=== PATIENT | female | born 1940 | race Caucasian/White ===

== ENCOUNTER 2017-09-06 08:13 | Outpatient (CLI) | payer MEDICARE, OTHER ==
--- NOTE | 2017-09-06 13:41 | NM ---
NUCLEAR MEDICINE PARATHYROID EVALUATION: CLINICAL HISTORY: Hyperparathyroidism, unspecified. COMPARISON: No prior comparison imaging. FINDINGS: Scintigraphic imaging of the neck performed, including detailed imaging. On delayed imaging, there is retained radiotracer activity localization to the right parathyroid ever on. This does indicate parathyroid adenoma. IMPRESSION: Abnormal parathyroid evaluation with retained activity seen at the right parathyroid region. Finding does indicate thyroid adenoma. This may be further assessed with a dedicated CT parathyroid scan, a s clinically indicated. POS: ALLAN
== END 2017-09-06 08:14 | disposition home or self-care (01) ==
LOC: NM 08:13
PROVIDERS: ATTEND Otolaryngology Plastic Surgery within the Head & Neck
DX: E21.3 Hyperparathyroidism, unspecified (principal); R94.6 Abnormal results of thyroid function studies
CPT/HCPCS: 78072; A9500

== ENCOUNTER 2017-09-25 09:04 | Day surgery (SDC) | payer MEDICARE, OTHER ==
[2017-09-24 13:17] VITALS: BMI 33.6
[2017-09-25] MEDS ORDERED: Lidocaine 1% w/Epinephrine 1:200K 30 ML VIAL ONE (09:39)
[2017-09-25] MEDS ORDERED: Lidocaine 4% Topical Sol 50 ML BOT ONE (09:39)
[2017-09-25] MEDS ORDERED: Fentanyl 100 MCG/2 ML VIAL ONE (09:39)
[2017-09-25] MEDS ORDERED: Morphine 10 MG/ML VIAL ONE (09:39)
[2017-09-25 09:50] LABS: Hemoglobin 12.8 g/dL (12.0-16.0)
[2017-09-25 10:11] LABS: Anion Gap 12 mmol/L (10-20); BUN (Urea Nitrogen) 13 mg/dL (9.8-20.1); Calc. Creatinine Clearance 65 mL/min (70-130); Calcium 11.2 mg/dL (7.8-10.44); Carbon Dioxide 28 mmol/L (23-31); Chloride 98 mmol/L (98-107); Estimated GFR-MDRD 57; Glucose 102 mg/dL (83-110); Potassium 4.2 mmol/L (3.5-5.1); Sodium 134 mmol/L (136-145)
[2017-09-25] MEDS ORDERED: Famotidine/PF 20 mg/2ml Vial ONE (11:16)
[2017-09-25] MEDS ORDERED: Bacitracin Zinc Ointment 30 gm TUBE ONE (11:33)
[2017-09-25] MEDS ORDERED: Metoclopramide HCl 10 MG/2 ML VIAL ONE (12:24)
[2017-09-25] MEDS ORDERED: PHENYLEPHRINE-NS 100 MCG/ML 10 ML SYRINGE ONE (12:31)
[2017-09-25] MEDS ORDERED: PROPOFOL 200 MG/20 ML VIAL ONE (12:31)
[2017-09-25] MEDS ORDERED: Dexamethasone 20 MG/5 ML VIAL ONE (12:31)
[2017-09-25] MEDS ORDERED: Lidocaine 1% PF 5 ML VIAL ONE (12:31)
[2017-09-25] MEDS ORDERED: Succinylcholine Chloride 20 MG/ML 10 ml SYRINGE FS ONE (12:31)
[2017-09-25] MEDS ORDERED: ePHEDrine/0.9% NaCl/PF SYRINGE 50 mg/10 ml ONE (12:31)
[2017-09-25] MEDS ORDERED: HYDROcodone/Acetaminophen 5/325 mg Tablet ONE (14:36)
--- NOTE | 2017-09-25 16:21 | EKG ---
Test Reason : PREOP Blood Pressure : / mmHG Vent. Rate : 088 BPM Atrial Rate : 088 BPM P-R Int : 194 ms QRS Dur : 076 ms QT Int : 374 ms P-R-T Axes : 065 031 054 degrees QTc Int : 452 ms Normal sinus rhythm Normal ECG No previous ECGs available Confirmed by CARA CRUZ ([id number]) on 09/25/2017 4:21:00 PM Referred By: MAKAYLA Confirmed By:CARA CRUZ
--- NOTE | 2017-09-25 22:25 | OP ---
PREOPERATIVE DIAGNOSES: 1. Right hyperparathyroidism. 2. Hypercalcemia. POSTOPERATIVE DIAGNOSES: 1. Right hyperparathyroidism. 2. Hypercalcemia. PROCEDURE: Right parathyroidectomy. SURGEON: Kurt Mares M.D. TIE BUYER: CALIXTO Ramirez ANESTHESIA: GETA. ESTIMATED BLOOD LOSS: Less than 10 mL COMPLICATIONS: None. ANESTHESIA: GETA. PROCEDURE IN DETAIL: The patient was taken to the operating room and placed supine on the table. Ge neral endotracheal anesthesia was obtained by the Anesthesia staff. Tube was secured in the midline with the laryngeal electrodes and being confirmed to be between the two vocal cords bilaterally. Pema ulder roll was placed. Patient was prepped and draped in standard surgical fashion. Lidocaine 1% in 1:100,000 epinephrine was injected into the anticipated skin incision approximately 2 cm above the c lavicle in the right lateral portion of the neck. Following this, an incision was made through skin and subcutaneous tissue. The platysmal layers were transected and subplatysmal flaps were elevated s uperiorly and inferiorly. Following this, previous sutures were identified in the area of the strap muscles. Strap muscles were from the thyroid gland and were retracted laterally. Followin g this, the thyroid gland was displaced medially with a retractor and a large 3 cm parathyroid adenom a was encountered just lateral to the recurrent laryngeal nerve on the right side and just medial to the inferior thyroid artery. This was suture ligated removed from the body. Following this, the wou nd was irrigated, a small drain was placed and the platysmal strap muscles were reapproximated using Monocryl stitch. The platysmal layer was reapproximated. Subcutaneous stitches were placed. The sk in was then closed using Dermabond. The patient tolerated the procedure well.
== END 2017-09-25 15:35 | disposition home or self-care (01) ==
LOC: SDC 09:04
PROVIDERS: ATTEND Otolaryngology Plastic Surgery within the Head & Neck
PROC: 0GBR0ZZ Excision of Parathyroid Gland, Open Approach (ICD-10-PCS; principal; 2017-09-25)
DX: D35.1 Benign neoplasm of parathyroid gland (principal); E21.3 Hyperparathyroidism, unspecified; Z79.82 Long term (current) use of aspirin; Z79.899 Other long term (current) drug therapy
CPT/HCPCS: 36415; 80048; 85014; 85018; 88305; 93005; 93010; J1100; J2001; J2270; J2704; J2765; J3010; S0028

== ENCOUNTER 2017-10-31 12:13 | Outpatient (CLI) | payer MEDICARE, OTHER ==
[2017-10-31 14:08] LABS: #Basophils 0.1 thou/uL (0.0-0.2); #Eosinphils 0.4 thou/uL (0.0-0.7); #Lymphocytes 2.9 thou/uL (1.20-3.40); #Monocytes 0.8 thou/uL (0.11-0.59); %Basophils 0.8 % (0.0-1.0); %Eosinophils 5.3 % (0.0-10.0); %Lymphocytes 40.5 % (21.0-51.0); %Monocytes 11.3 % (0.0-10.0); %Neutrophils 42.1 % (42.0-75.0); Hemoglobin 12.7 g/dL (12.0-16.0); Mean Corpuscular HGB CONC 33.1 g/dL (32.0-36.0); Mean Corpuscular Hemoglobin 28.3 pg (27.0-31.0); Mean Corpuscular Volume 85.5 fl (81.0-99.0); Mean Platelet Volume 7.2 fL (7.4-10.4); Platelet Count 334 thou/uL (130-400); RBC Distribution Width 14.2 % (11.5-14.5); White Blood Cell (WBC) Count 7.2 thou/uL (4.8-10.8)
[2017-10-31 14:16] LABS: PTT 27.3 SEC (22.9-36.1); Prothrombin Time 12.9 SEC (12.0-14.7)
--- NOTE | 2017-10-31 14:28 | RAD ---
TWO VIEWS CHEST: HISTORY: Preoperative evaluation. FINDINGS: There is density in the right cardiophrenic angle. This could represent cardiophrenic fat pad, atele ctasis, or infiltrate. There are no comparison studies to assess stability. As there are no prior s tudies available, recommend elective chest CT to rule out a right cardiophrenic angle abnormality. The lungs are otherwise clear. Heart size is upper normal. IMPRESSION: Density in the right cardiophrenic angle. Recommend further evaluation. CODE T POS: ALLAN
[2017-10-31 14:43] LABS: Anion Gap 11 mmol/L (10-20); BUN (Urea Nitrogen) 16 mg/dL (9.8-20.1); Calc. Creatinine Clearance 0 mL/min (70-130); Calcium 9.4 mg/dL (7.8-10.44); Carbon Dioxide 27 mmol/L (23-31); Chloride 99 mmol/L (98-107); Estimated GFR-MDRD 60; Glucose 95 mg/dL (83-110); Potassium 3.5 mmol/L (3.5-5.1); Sodium 133 mmol/L (136-145)
[2017-10-31 15:12] LABS: Bilirubin Negative (Negative); Blood, Urine Negative (Negative); Clarity CLEAR (Clear); Glucose, Urine (Dipstick) Negative (Negative); Leukocyte Small (Negative); Nitrite Negative (Negative); Protein, Urine (Dipstick) Negative (Neg-Trace); Specific Gravity, Urine 1.017 (1.002-1.036); Urobilinogen 0.2 mg/dL (0.2-1.0); pH, Urine 6.5 (5.0-9.0)
[2017-10-31 15:19] LABS: Bacteria/HPF Rare-Few HPF (None Seen); Hyaline Casts/LPF 0-3 HYALINE CAST LPF (0-3 Hyaline); RBC/HPF 0-3 HPF (0-3); Squamous Epithelial 0-3 HPF (0-3); WBC/HPF 0-3 HPF (0-3)
--- NOTE | 2017-11-05 17:56 | EKG ---
Test Reason : Blood Pressure : / mmHG Vent. Rate : 095 BPM Atrial Rate : 095 BPM P-R Int : 190 ms QRS Dur : 076 ms QT Int : 386 ms P-R-T Axes : 068 073 044 degrees QTc Int : 485 ms Normal sinus rhythm Nonspecific T wave abnormality Prolonged QT Abnormal ECG When compared with ECG of 25-SEP-2017 09:46, Nonspecific T wave abnormality now evident in Anterior leads Confirmed by Flip PURI ([id number]) on 11/05/2017 5:56:20 PM Referred By: KJ Confirmed By:Flip PURI
== END 2017-10-31 12:14 | disposition home or self-care (01) ==
LOC: LABBT 12:13
PROVIDERS: ATTEND Orthopaedic Surgery
DX: Z01.818 Encounter for other preprocedural examination (principal); M17.12 Unilateral primary osteoarthritis, left knee; R91.8 Other nonspecific abnormal finding of lung field
CPT/HCPCS: 71046; 80048; 81001; 85025; 85610; 85730; 87081; 93005; 93010

== ENCOUNTER 2017-11-06 12:34 | Outpatient (CLI) | payer MEDICARE, OTHER | END 2017-11-06 12:35 | disposition home or self-care (01) | LOC: LABBT 12:34 | PROVIDERS: ATTEND Orthopaedic Surgery | DX: Z01.818 Encounter for other preprocedural examination (principal); M17.12 Unilateral primary osteoarthritis, left knee | CPT/HCPCS: 86850; 86900; 86901 ==

== ENCOUNTER 2017-11-12 06:13 | Inpatient (IN) | payer MEDICARE, OTHER ==
[2017-10-31 12:43] VITALS: BMI 34.0
[2017-11-12] MEDS ORDERED: CEFAZOLIN/Water 2 GM/20 ML SYRINGE ONE (06:36)
[2017-11-12] MEDS ORDERED: Sodium Chloride 0.9% 100 ML ONE (06:36)
[2017-11-12] MEDS ORDERED: Vancomycin HCl 1.5 GM in Sodium Chloride 0.9% 250 ML 300 ML IVPB SCH (06:45)
[2017-11-12] MEDS ORDERED: traMADol HCl 50 MG TAB PO PRN ×2 (07:06→07:08)
[2017-11-12] MEDS ORDERED: Ondansetron HCl/PF 4 MG/2 ML Vial IVP PRN (07:06)
[2017-11-12] MEDS ORDERED: Fentanyl 100 MCG/2 ML VIAL SLOW IVP PRN ×2 (07:06)
[2017-11-12] MEDS ORDERED: Zolpidem Tartrate 5 MG TAB PO PRN ×2 (07:06→07:58)
[2017-11-12] MEDS ORDERED: diphenhydrAMINE 25 MG CAP PO PRN (07:06)
[2017-11-12] MEDS ORDERED: Acetaminophen 500 MG TAB PO PRN (07:08)
[2017-11-12] MEDS ORDERED: Tranexamic Acid 1,000 MG in Sodium Chloride 0.9% 100 ML IVPB SCH (07:15)
[2017-11-12] MEDS ORDERED: Midazolam HCl 2 mg/2 ml Vial ONE (07:19)
[2017-11-12] MEDS ORDERED: Ropivacaine 0.5% HCl/PF (150 MG/30 ML VIAL) ONE (07:55)
[2017-11-12] MEDS ORDERED: Bupivacaine 0.25% HCL 30 ML VIAL ONE (07:55)
[2017-11-12] MEDS ORDERED: Fentanyl 100 MCG/2 ML VIAL IV PRN (07:58)
[2017-11-12] MEDS ORDERED: Promethazine HCl 25 MG/ML VIAL IM PRN (07:58)
[2017-11-12] MEDS ORDERED: Bupivacaine PF 0.5% 30 ML VIAL ONE (08:14)
[2017-11-12] MEDS ORDERED: Prasugrel 10 MG TAB PO SCH (09:00)
[2017-11-12] MEDS ORDERED: Hydrochlorothiazide 25 MG TAB PO SCH (09:00)
[2017-11-12] MEDS ORDERED: PHENYLEPHRINE-NS 100 MCG/ML 10 ML SYRINGE ONE ×2 (09:18→13:26)
--- NOTE | 2017-11-12 10:13 | OP ---
PREOPERATIVE DIAGNOSIS: Degenerative joint disease, left knee. POSTOPERATIVE DIAGNOSIS: Degenerative joint disease, left knee. PROCEDURE: Left total knee arthroplasty using Ga Triathlon 3 femur, 3 tibia, 9 mm CS X3 polyeth ylene, and S27 patella. PROCEDURE IN DETAIL: After informed consent was obtained in the preoperative holding area. The jessica ent was taken to the operative suite where general anesthesia was induced. Once adequate level of ge neral anesthesia was obtained, the patient was positioned and a well-padded tourniquet was placed debora und the left proximal thigh. The left lower extremity was then prepped and draped in the usual steri le fashion. Prior to exsanguination, a time out was called and all members of the surgical team agre ed upon site, surgeon, and patient. The extremity was then exsanguinated and the tourniquet was rais ed. A midline longitudinal incision was then made directly over the patella extending two fingerbrea dths above the superior pole of the patella and two fingerbreadths inferior to the inferior patellar pole of the patella. Deeper subcutaneous layers were dissected sharply and local bleeding was contro lled with Bovie electrocautery. A quad tendon longitudinal split was then made sharply and a median parapatellar arthrotomy was carried out both sharp and with Bovie electrocautery, carried down to one fingerbreadth medial to the tibial tubercle. The knee was then placed into flexion and the patella was everted nicely, and a copious fat pad ectomy was performed allowing for greater exposure of the t ibia. The computer-assisted distal femoral fiducial was then placed and pinned firmly, and the dista l femoral cutting guide was pinned firmly into place. The oscillating saw was then used to remove th e appropriate amount of bone. The 4-in-1 cutting block was then placed on the distal femur and the o scillating saw was used to remove the appropriate amount of bone off of the anterior, posterior, and chamfer cuts. After completion of bone cuts, the anterior cruciate ligament was resected sharply and the posterior cruciate ligament retractor was placed and the tibia was subluxed for better exposure. Partial meniscectomies were carried out, and the tibial computer-assisted fiducial was pinned, and the cutting guide was placed. Oscillating saw was then used to remove the bone with Hohmann retracto rs used to take care and protect the collateral ligaments. After the tibial resection was performed, a laminar apprentice cook was placed in between the freshened bone cuts. The knee placed at 90 degrees and further bilateral meniscectomies were carried out, and the curved osteotome and curettage was used t o remove any excess bone spurs in the posterior compartment. The trial femoral component, tibial bas eplate were placed with the appropriate polyethylene trial insert with an appropriate polyethylene sp acer and patellar button. The knee was taken through full range of motion with flexion and extension from 0-90 degrees and patellar broach squarely in the trochlea without any squinting or subluxation noted. The knee was also stable to varus and valgus stressing at 0, 15, 45, and 90 degrees of flexio n. The drawer was negative. All trial components were then removed and the keel punch was used to p rovide the appropriate defect in the tibia with a mallet. The freshened bone cuts were copiously irr igated with pulsatile lavage of about 1-1/2 liters to remove all excess debris. The freshened bone c uts were then dried and with suction and lap sponge. The knee was placed in flexion and retractors w ere placed to provide access to all bone cuts. Tobramycin impregnated methyl methacrylate cement was then placed on the freshened bone cuts and implants which were malleted firmly into place. Curettag e and [place] elevators were used to remove any excess bone cement. The knee was placed into full exte nsion and the patellar button was placed under compression, and the cement was allowed to cure. Once completed, the components were again taken through full range of motion and copious irrigation of th e knee was carried out with another liter of normal saline. All components were inspected fully with full range of motion and varus and valgus stressing. There was no laxity noted and full extension w as observed clinically. Primary closure was accomplished with #2 interrupted Vicryl stitch of the ar throtomy defect. This was oversewn with a #2 running Quill barbed stitch. The gravitational platele t system was then injected into the arthrotomy prior to closure. The subcutaneous layer was then ira sed with a running 0 barbed Monocryl stitch and skin closure accomplished with a running subcuticular 3-0 Monocfacundol barbed Quill stitch and augmented with cement on the skin. Tourniquet was lowered. Go od spontaneous return of distal pulses was noted clinically and a sterile dressing was applied to the incision. The procedure was terminated without any complications. The patient was awakened in the operative suite and the tourniquet was removed, and the patient was taken to the recovery room in sta ble condition.
[2017-11-12] MEDS: Sodium Chloride 0.9% 1,000 ML IV SCH ×2 (11:27→17:17)
[2017-11-12] MEDS: Multivitamin W/ Minerals 1 TAB PO SCH (11:27)
[2017-11-12] MEDS: Ferrous Gluconate 324 MG TAB PO SCH ×2 (11:27→20:09)
[2017-11-12] MEDS: Aspirin 81 mg Enteric Coated Tablet PO SCH ×4 (11:27→21:12)
[2017-11-12] MEDS: Senokot S 8.6-50 MG TAB PO SCH ×2 (11:28→20:09)
[2017-11-12] MEDS ORDERED: Albuterol Sulfate 2.5 mg/3 ml Neb NEB PRN (12:48)
[2017-11-12] MEDS ORDERED: Dexamethasone 20 MG/5 ML VIAL ONE (13:26)
[2017-11-12] MEDS ORDERED: ePHEDrine/0.9% NaCl/PF SYRINGE 50 mg/10 ml ONE (13:26)
[2017-11-12] MEDS ORDERED: Ondansetron HCl/PF 4 MG/2 ML Vial ONE (13:26)
[2017-11-12] MEDS ORDERED: CEFAZOLIN/Water 2 GM/20 ML SYRINGE SLOW IVP SCH (14:00)
[2017-11-12] MEDS: HYDROcodone/Acetaminophen 10/325 mg Tablet PO PRN ×3 (14:28→22:12)
--- NOTE | 2017-11-12 15:26 | RAD ---
LEFT KNEE TWO VIEWS: History: 77-year-old female, history of post op total knee replacement. FINDINGS: Recent total knee replacement changes are noted. No dislocation or periprosthetic fracture. IMPRESSION: Unremarkable recent post total knee replacement changes. POS: C
[2017-11-12] MEDS: CEFAZOLIN/Water 2 GM/20 ML SYRINGE SLOW IVP SCH (17:17)
[2017-11-12] MEDS ORDERED: Nitroglycerin 0.4 MG TAB (25 Tab Bottle) PO PRN (17:24)
[2017-11-12 18:38] LABS: Troponin I 0.012 ng/mL (< 0.028)
[2017-11-12 18:40] LABS: Anion Gap 17 mmol/L (10-20); BUN (Urea Nitrogen) 15 mg/dL (9.8-20.1); Calc. Creatinine Clearance 59 mL/min (70-130); Calcium 8.9 mg/dL (7.8-10.44); Carbon Dioxide 20 mmol/L (23-31); Chloride 102 mmol/L (98-107); Estimated GFR-MDRD 50; Glucose 186 mg/dL (83-110); Magnesium 1.5 mg/dL (1.6-2.6); Phosphorus 2.3 mg/dL (2.3-4.7); Potassium 4.1 mmol/L (3.5-5.1); Sodium 135 mmol/L (136-145)
[2017-11-12] MEDS ORDERED: Magnesium Sulfate 2 GM in Sodium Chloride 0.9% 100 ML IVPB SCH (19:00)
[2017-11-12] MEDS ORDERED: Magnesium 2 GM/NS 0.9% 100 ML 2 GM in Premix Bag 1 BAG IVPB SCH (19:15)
--- NOTE | 2017-11-12 20:31 | PDOC.PN ---
- Subjective Encounter Start Date: 11/12/17 Encounter Start Time: 20:29 Patient seen and examined for med mngt. Was SOB with wheezing/tachycardic earlier. Feels better after nebulizer treatment. Has h/o coronary stents. Currently not on Effient per patient and family report. Safety Companion in [place]. - Objective MAR Reviewed: Yes Vital Signs & Weight: Vital Signs (12 hours) Temp Pulse Pulse Pulse Pulse Pulse Resp 11/12/17 19:26 109 H 18 11/12/17 16:50 98.1 F 113 H 20 11/12/17 15:12 117 H 126 H 122 H 117 H 11/12/17 12:10 97.5 F L 92 18 11/12/17 11:15 97.5 F L 92 18 BP BP Pulse Ox Pulse Ox Pulse Ox Pulse Ox Pulse Ox 11/12/17 19:26 94 L 11/12/17 16:50 135/82 92 L 11/12/17 15:12 137/70 95 96 93 L 94 L 11/12/17 12:10 95 11/12/17 11:15 123/64 95 Weight Weight 180 lb I&O: 11/11/17 11/12/17 11/13/17 06:59 06:59 06:59 Intake Total 1420 Output Total 1700 Balance -280 Result Diagrams: 11/12/17 17:42 EKG Reviewed by me: Yes (SR/ST, NSST) Phys Exam - Physical Examination Constitutional: NAD Respiratory: no rales, wheezing present scat Cardiovascular: RRR, no rub Gastrointestinal: soft, non-tender, positive bowel sounds Colostomy + Musculoskeletal: no edema Neurological: non-focal, moves all 4 limbs Psychiatric: A&O x 3 Dx/Plan (1) Asthma exacerbation Code(s): J45.901 - UNSPECIFIED ASTHMA WITH (ACUTE) EXACERBATION Status: Acute (2) Hypomagnesemia Code(s): E83.42 - HYPOMAGNESEMIA Status: Acute (3) Former smoker Status: Chronic (4) HTN (hypertension) Code(s): I10 - ESSENTIAL (PRIMARY) HYPERTENSION Status: Chronic (5) CKD (chronic kidney disease) stage 3, GFR 30-59 ml/min Code(s): N18.3 - CHRONIC KIDNEY DISEASE, STAGE 3 (MODERATE) Status: Chronic (6) GERD (gastroesophageal reflux disease) Code(s): K21.9 - GASTRO-ESOPHAGEAL REFLUX DISEASE WITHOUT ESOPHAGITIS Status: Chronic (7) Obesity (BMI 30.0-34.9) Code(s): E66.9 - OBESITY, UNSPECIFIED Status: Chronic (8) CAD (coronary artery disease) Code(s): I25.10 - ATHSCL HEART DISEASE OF [place] CORONARY ARTERY W/O ANG PCTRS Status: Chronic Comment: s/p stent - currently off Effient - Plan DVT proph w/SCDs Replace Magnessium -: Stat EKG reviewed. Troponins negative -: Cont ASA -: Cont HCTZ, Full code/DPOA - self with the help of family -: Cont to monitor. Will follow. Thank you for this consultation Review of Systems - Review of Systems Constitutional: negative: fever, chills, sweats, weakness, malaise, other Respiratory: Wheezing. negative: Cough, Dry, Shortness of Breath, Hemoptysis, SOB with Excertion, Pleuritic Pain, Sputum Cardiovascular: negative: chest pain, palpitations, orthopnea, paroxysmal nocturnal dyspnea, edema, light headedness, other Gastrointestinal: negative: Nausea, Vomiting, Abdominal Pain, Diarrhea, Constipation, Melena, Hematochezia, Other - Medications/Allergies Allergies/Adverse Reactions: Allergies Allergy/AdvReac Type Severity Reaction Status Date / Time naproxen [From Aleve] Allergy HIVES, Verified 10/31/17 12:44 BREATHING PROBLEMS pneumococcal vaccine Allergy Verified 11/12/17 12:49 Medications: Current Medications Acetaminophen (Tylenol) 650 mg PO Q4H PRN PRN Reason: GONZALEZ/ T > 101F; Mild Pain (1-3) Hydrocodone Bitart/Acetaminophen ([place] 10/325) 1 tab PO Q4H PRN PRN Reason: Moderate Pain (4-6) Last Admin: 11/12/17 18:16 Dose: 1 tab Hydrocodone Bitart/Acetaminophen ([place] 10/325) 2 tab PO Q4H PRN PRN Reason: Severe Pain (7-10) Hydrocodone Bitart/Acetaminophen ([place] 5/325) 1 tab PO Q4H PRN PRN Reason: Mild Pain (1-3) Hydrocodone Bitart/Acetaminophen ([place] 5/325) 2 tab PO Q4H PRN PRN Reason: For Moderate Pain 4-6 Albuterol Sulfate (Ventolin) 2.5 mg NEB Q6H PRN PRN Reason: SOB Last Admin: 11/12/17 14:38 Dose: 2.5 mg Albuterol/Ipratropium (Duoneb) 3 ml NEB R1HG-DD PRN PRN Reason: SOB &/or Wheezing Albuterol/Ipratropium (Duoneb) 3 ml NEB Q2H PRN PRN Reason: SOB &/or Wheezing Last Admin: 11/12/17 19:26 Dose: 3 ml Aspirin (Ecotrin) 81 mg PO BID [facility] Last Admin: 11/12/17 20:09 Dose: 81 mg Cefazolin Sodium (Ancef) 2 gm SLOW IVP 0100,0900,1700 [facility] Stop: 11/13/17 01:01 Last Admin: 11/12/17 17:17 Dose: 2 gm Diphenhydramine HCl (Benadryl) 25 mg PO Q6H PRN PRN Reason: Itching Fentanyl (Sublimaze) 50 mcg SLOW IVP Q30MIN PRN PRN Reason: Moderate Pain (4-6) Fentanyl (Sublimaze) 100 mcg SLOW IVP Q1H PRN PRN Reason: Severe Pain (7-10) Fentanyl (Sublimaze) 50 mcg IV Q1H PRN PRN Reason: BREAKTHROUGH PAIN Ferrous Gluconate (Fergon) 324 mg PO BID [facility] Last Admin: 11/12/17 20:09 Dose: 324 mg Hydrochlorothiazide (Hydrochlorothiazide) 12.5 mg PO DAILY [facility] Sodium Chloride (Normal Saline 0.9%) 1,000 mls @ 100 mls/hr IV .Q10H [facility] Last Admin: 11/12/17 17:17 Dose: 1,000 mls Bupivacaine HCl 50 ml/ Sodium (Chloride) 100 mls @ 0 mls/hr NERVE BLCK INF [facility] PRN Reason: As Directed Magnesium Sulfate 2 gm/ Device 100 mls @ 100 mls/hr IVPB NOW [facility] Stop: 11/12/17 21:30 Last Admin: 11/12/17 20:05 Dose: 100 mls Iron/Minerals/Multivitamins (Theragran M) 1 tab PO DAILY [facility] Last Admin: 11/12/17 11:27 Dose: Not Given Nitroglycerin (Nitrostat) 0.4 mg PO Q5MIN PRN PRN Reason: Chest Pain Ondansetron HCl (Zofran) 4 mg IVP Q6H PRN PRN Reason: Nausea/Vomiting Pantoprazole Sodium (Protonix) 40 mg PO DAILY [facility] Last Admin: 11/12/17 11:27 Dose: Not Given Promethazine HCl (Phenergan) 12.5 mg IM Q4H PRN PRN Reason: Nausea/Vomiting Promethazine HCl (Phenergan) 12.5 mg IM Q4H PRN PRN Reason: Nausea Senna/Docusate Sodium (Senokot S) 2 tab PO BID [facility] Last Admin: 11/12/17 20:09 Dose: 2 tab Sodium Chloride (Flush - Normal Saline) 10 ml IVF PRN PRN PRN Reason: Saline Flush Tramadol HCl (Ultram) 50 mg PO Q6H PRN PRN Reason: Mild Pain (1-3) Tramadol HCl (Ultram) 100 mg PO Q6H PRN PRN Reason: Moderate Pain 4-6 Zolpidem Tartrate (Ambien) 5 mg PO HSPRN PRN PRN Reason: Insomnia
[2017-11-12 21:48] LABS: Troponin I Less than 0.010 ng/mL (< 0.028)
[2017-11-12] MEDS: Bupivacaine 0.5% 50 ML in Sodium Chloride 0.9% 50 ML NERVE BLCK SCH (22:15)
[2017-11-12] MEDS: traMADol HCl 50 MG TAB PO PRN (23:24)
[2017-11-13] MEDS: CEFAZOLIN/Water 2 GM/20 ML SYRINGE SLOW IVP SCH (00:09)
[2017-11-13] MEDS: Sodium Chloride 0.9% 1,000 ML IV SCH ×2 (01:51→14:34)
[2017-11-13 04:45] LABS: Hemoglobin 10.6 g/dL (12.0-16.0); Mean Corpuscular HGB CONC 33.5 g/dL (32.0-36.0); Mean Corpuscular Hemoglobin 28.9 pg (27.0-31.0); Mean Corpuscular Volume 86.1 fl (81.0-99.0); Mean Platelet Volume 6.8 fL (7.4-10.4); Platelet Count 301 thou/uL (130-400); RBC Distribution Width 14.5 % (11.5-14.5); Red Blood Cell (RBC) Count 3.66 mill/uL (4.20-5.40); White Blood Cell (WBC) Count 13.6 thou/uL (4.8-10.8)
[2017-11-13] MEDS: HYDROcodone/Acetaminophen 10/325 mg Tablet PO PRN ×3 (06:09→22:54)
[2017-11-13] MEDS: Hydrochlorothiazide 25 MG TAB PO SCH (08:08)
[2017-11-13] MEDS: Senokot S 8.6-50 MG TAB PO SCH ×2 (08:08→22:54)
[2017-11-13] MEDS: Multivitamin W/ Minerals 1 TAB PO SCH (08:11)
[2017-11-13] MEDS: Ferrous Gluconate 324 MG TAB PO SCH ×2 (08:11→22:57)
[2017-11-13] MEDS: Aspirin 81 mg Enteric Coated Tablet PO SCH ×2 (08:11→22:57)
[2017-11-13] MEDS: traMADol HCl 50 MG TAB PO PRN ×2 (10:17→18:03)
[2017-11-13] MEDS: Bupivacaine 0.5% 50 ML in Sodium Chloride 0.9% 50 ML NERVE BLCK SCH (11:29)
--- NOTE | 2017-11-13 12:00 | PRG ---
DATE OF SERVICE: 11/13/2017 SUBJECTIVE: Sammie is a 77-year-old female postop day #1 from left total knee arthroplasty. She saez s admit to some discomfort in the left knee, but overall her blocks are working relatively well. OBJECTIVE: VITAL SIGNS: Temperature is 97.9, pulse 86, respiratory rate 16, blood pressure is 133/84. GENERAL: She is alert and oriented to person, place, time, and situation. Nonfocal, appropriate wit h examiner. Incision is clean and closed. No strikethrough and she is neurovascularly intact in the involved ext remity. LABORATORY DATA: Hemoglobin and hematocrit are 10.6 and 31.5. IMPRESSION: 1. A 77-year-old female postop day #1 left total knee arthroplasty. 2. Mild postoperative hemorrhagic anemia. PLAN: The patient desires home discharge, probably tomorrow or the next day.
--- NOTE | 2017-11-13 12:31 | EKG ---
Test Reason : Blood Pressure : / mmHG Vent. Rate : 110 BPM Atrial Rate : 110 BPM P-R Int : 184 ms QRS Dur : 076 ms QT Int : 296 ms P-R-T Axes : 065 032 060 degrees QTc Int : 400 ms Sinus tachycardia Nonspecific T wave abnormality Abnormal ECG When compared with ECG of 31-OCT-2017 13:33, Nonspecific T wave abnormality, worse in Inferior leads Nonspecific T wave abnormality, worse in Lateral leads Confirmed by TERESA DUVALL ([id number]) on 11/13/2017 12:30:40 PM Referred By: Confirmed By:TERESA DUVALL
--- NOTE | 2017-11-13 14:32 | PDOC.PN ---
- Subjective Encounter Start Date: 11/13/17 Encounter Start Time: 13:15 Patent is seen today, alert and oriented. no other concerns noted. Pt pain is improving, pt is on Effient was told by his reinforced concrete inspector to hold prior to thyroide surgery, but not sure if he is aware of the Knee surgery. Pt has no chest pains. - Objective MAR Reviewed: Yes Vital Signs & Weight: Vital Signs (12 hours) Temp Pulse Resp BP Pulse Ox 11/13/17 13:07 90 11/13/17 12:58 98.4 F 98 18 153/85 H 96 11/13/17 08:00 97.9 F 86 16 98 11/13/17 07:26 97.9 F 86 16 133/84 98 11/13/17 04:30 97.4 F L 92 16 124/73 95 Weight Admit Weight 180 lb Weight 180 lb I&O: 11/12/17 11/13/17 11/14/17 06:59 06:59 06:59 Intake Total 1420 Output Total 3250 Balance -1830 Result Diagrams: 11/13/17 03:59 11/12/17 17:42 Radiology Reviewed by me: Yes Phys Exam - Physical Examination HEENT: PERRLA, moist MMs Neck: no nodes, no JVD Respiratory: no wheezing, no rales Cardiovascular: RRR, no significant murmur Gastrointestinal: soft, non-tender Musculoskeletal: no edema Psychiatric: normal affect Dx/Plan (1) Asthma exacerbation Code(s): J45.901 - UNSPECIFIED ASTHMA WITH (ACUTE) EXACERBATION Status: Acute Comment: Pt deneis having asthma, says she has bronchitis, she is on neb treatments. and [place]. (2) Hypomagnesemia Code(s): E83.42 - HYPOMAGNESEMIA Status: Resolved (3) CAD (coronary artery disease) Code(s): I25.10 - ATHSCL HEART DISEASE OF [place] CORONARY ARTERY W/O ANG PCTRS Status: Chronic Comment: s/p stent - currently off Effient, they will call their cardiology to find if ok with stopping. (4) CKD (chronic kidney disease) stage 3, GFR 30-59 ml/min Code(s): N18.3 - CHRONIC KIDNEY DISEASE, STAGE 3 (MODERATE) Status: Chronic Comment: Stbale, Continue to Monitor Renal fucntions, Continue hydration. (5) GERD (gastroesophageal reflux disease) Code(s): K21.9 - GASTRO-ESOPHAGEAL REFLUX DISEASE WITHOUT ESOPHAGITIS Status: Chronic Comment: [place]. (6) HTN (hypertension) Code(s): I10 - ESSENTIAL (PRIMARY) HYPERTENSION Status: Chronic Comment: at goal, Continue with home MEds. - Plan cont current plan of care, plan discussed w/ family, PT/OT, incentive spirometry , out of bed/ambulate, DVT proph w/SCDs * . Review of Systems - Review of Systems Constitutional: negative: fever, chills, sweats, weakness, malaise, other Eyes: negative: Pain, Vision Change, Conjunctivae Inflammation, Eyelid Inflammation, Redness, Other ENT: negative: Ear Pain, Ear Discharge, Nose Pain, Nose Discharge, Nose Congestion, Mouth Pain, Mouth Swelling, Throat Pain, Throat Swelling, Other Respiratory: negative: Cough, Dry, Shortness of Breath, Hemoptysis, SOB with Excertion, Pleuritic Pain, Sputum, Wheezing Cardiovascular: negative: chest pain, palpitations, orthopnea, paroxysmal nocturnal dyspnea, edema, light headedness, other Gastrointestinal: negative: Nausea, Vomiting, Abdominal Pain, Diarrhea, Constipation, Melena, Hematochezia, Other Musculoskeletal: negative: Neck Pain, Shoulder Pain, Arm Pain, Back Pain, Hand Pain, Leg Pain, Foot Pain, Other - Medications/Allergies Allergies/Adverse Reactions: Allergies Allergy/AdvReac Type Severity Reaction Status Date / Time naproxen [From Aleve] Allergy HIVES, Verified 10/31/17 12:44 BREATHING PROBLEMS pneumococcal vaccine Allergy Verified 11/12/17 12:49 Medications: Current Medications Acetaminophen (Tylenol) 650 mg PO Q4H PRN PRN Reason: GONZALEZ/ T > 101F; Mild Pain (1-3) Hydrocodone Bitart/Acetaminophen ([place] 10/325) 1 tab PO Q4H PRN PRN Reason: Moderate Pain (4-6) Last Admin: 11/13/17 06:09 Dose: 1 tab Hydrocodone Bitart/Acetaminophen ([place] 10/325) 2 tab PO Q4H PRN PRN Reason: Severe Pain (7-10) Hydrocodone Bitart/Acetaminophen ([place] 5/325) 1 tab PO Q4H PRN PRN Reason: Mild Pain (1-3) Hydrocodone Bitart/Acetaminophen ([place] 5/325) 2 tab PO Q4H PRN PRN Reason: For Moderate Pain 4-6 Albuterol Sulfate (Ventolin) 2.5 mg NEB Q6H PRN PRN Reason: SOB Last Admin: 11/12/17 14:38 Dose: 2.5 mg Albuterol/Ipratropium (Duoneb) 3 ml NEB [id number] PRN PRN Reason: SOB &/or Wheezing Last Admin: 11/13/17 13:07 Dose: 3 ml Albuterol/Ipratropium (Duoneb) 3 ml NEB Q2H PRN PRN Reason: SOB &/or Wheezing Last Admin: 11/12/17 19:26 Dose: 3 ml Aspirin (Ecotrin) 81 mg PO BID [facility] Last Admin: 11/13/17 08:11 Dose: 81 mg Diphenhydramine HCl (Benadryl) 25 mg PO Q6H PRN PRN Reason: Itching Fentanyl (Sublimaze) 50 mcg SLOW IVP Q30MIN PRN PRN Reason: Moderate Pain (4-6) Fentanyl (Sublimaze) 100 mcg SLOW IVP Q1H PRN PRN Reason: Severe Pain (7-10) Fentanyl (Sublimaze) 50 mcg IV Q1H PRN PRN Reason: BREAKTHROUGH PAIN Ferrous Gluconate (Fergon) 324 mg PO BID [facility] Last Admin: 11/13/17 08:11 Dose: 324 mg Hydrochlorothiazide (Hydrochlorothiazide) 12.5 mg PO DAILY [facility] Last Admin: 11/13/17 08:08 Dose: 12.5 mg Sodium Chloride (Normal Saline 0.9%) 1,000 mls @ 100 mls/hr IV .Q10H [facility] Last Admin: 11/13/17 01:51 Dose: Not Given Bupivacaine HCl 50 ml/ Sodium (Chloride) 100 mls @ 0 mls/hr NERVE BLCK INF [facility] PRN Reason: As Directed Last Admin: 11/13/17 11:29 Dose: 100 mls Iron/Minerals/Multivitamins (Theragran M) 1 tab PO DAILY [facility] Last Admin: 11/13/17 08:11 Dose: 1 tab Nitroglycerin (Nitrostat) 0.4 mg PO Q5MIN PRN PRN Reason: Chest Pain Ondansetron HCl (Zofran) 4 mg IVP Q6H PRN PRN Reason: Nausea/Vomiting Pantoprazole Sodium (Protonix) 40 mg PO DAILY [facility] Last Admin: 11/13/17 08:11 Dose: 40 mg Promethazine HCl (Phenergan) 12.5 mg IM Q4H PRN PRN Reason: Nausea/Vomiting Promethazine HCl (Phenergan) 12.5 mg IM Q4H PRN PRN Reason: Nausea Senna/Docusate Sodium (Senokot S) 2 tab PO BID [facility] Last Admin: 11/13/17 08:08 Dose: 2 tab Sodium Chloride (Flush - Normal Saline) 10 ml IVF PRN PRN PRN Reason: Saline Flush Tramadol HCl (Ultram) 50 mg PO Q6H PRN PRN Reason: Mild Pain (1-3) Last Admin: 11/12/17 23:24 Dose: 50 mg Tramadol HCl (Ultram) 100 mg PO Q6H PRN PRN Reason: Moderate Pain 4-6 Last Admin: 11/13/17 10:17 Dose: 100 mg Zolpidem Tartrate (Ambien) 5 mg PO HSPRN PRN PRN Reason: Insomnia
[2017-11-14] MEDS: Bupivacaine 0.5% 50 ML in Sodium Chloride 0.9% 50 ML NERVE BLCK SCH (01:45)
[2017-11-14] MEDS: Sodium Chloride 0.9% 1,000 ML IV SCH ×3 (01:47→20:30)
[2017-11-14 04:17] LABS: Hemoglobin 9.9 g/dL (12.0-16.0); Mean Corpuscular HGB CONC 32.4 g/dL (32.0-36.0); Mean Corpuscular Hemoglobin 28.6 pg (27.0-31.0); Mean Corpuscular Volume 88.2 fl (81.0-99.0); Platelet Count 285 thou/uL (130-400); RBC Distribution Width 14.6 % (11.5-14.5); Red Blood Cell (RBC) Count 3.44 mill/uL (4.20-5.40); White Blood Cell (WBC) Count 11.7 thou/uL (4.8-10.8)
[2017-11-14] MEDS: HYDROcodone/Acetaminophen 10/325 mg Tablet PO PRN ×2 (07:49→13:51)
[2017-11-14] MEDS: Multivitamin W/ Minerals 1 TAB PO SCH (07:50)
[2017-11-14] MEDS: Aspirin 81 mg Enteric Coated Tablet PO SCH ×2 (07:50→22:00)
[2017-11-14] MEDS: Senokot S 8.6-50 MG TAB PO SCH ×2 (07:50→22:00)
[2017-11-14] MEDS: Hydrochlorothiazide 25 MG TAB PO SCH (07:51)
[2017-11-14] MEDS: Ferrous Gluconate 324 MG TAB PO SCH ×2 (07:52→22:00)
[2017-11-14] MEDS ORDERED: Fentanyl 100 MCG/2 ML VIAL ONE (13:10)
--- NOTE | 2017-11-14 14:20 | PDOC.PN ---
- Subjective Encounter Start Date: 11/14/17 Encounter Start Time: 12:00 Patient is seen today, alert and oriented. She continuos to cough and with sputum production, she has h/o chronic broncitis. never seen a pulmoanry. - Objective MAR Reviewed: Yes Vital Signs & Weight: Vital Signs (12 hours) Temp Pulse Resp BP Pulse Ox 11/14/17 12:50 98.4 F 87 18 137/89 92 L 11/14/17 08:48 98.9 F 113 H 16 147/76 H 92 L 11/14/17 02:39 106 H 16 92 L Weight Admit Weight 180 lb Weight 180 lb I&O: 11/13/17 11/14/17 11/15/17 06:59 06:59 06:59 Intake Total 1420 Output Total 3250 200 Balance -1830 -200 Result Diagrams: 11/14/17 03:45 11/12/17 17:42 Radiology Reviewed by me: Yes Phys Exam - Physical Examination HEENT: PERRLA, moist MMs Neck: no nodes, no JVD Respiratory: no rales, wheezing present Cardiovascular: RRR, no significant murmur Gastrointestinal: soft, non-tender Musculoskeletal: pulses present Psychiatric: normal affect, A&O x 3 Dx/Plan (1) Asthma exacerbation Code(s): J45.901 - UNSPECIFIED ASTHMA WITH (ACUTE) EXACERBATION Status: Acute Comment: Pt deneis having asthma, says she has bronchitis, she is on neb treatments. and Stbale. Will do Duonebs, Scheduled, Budesonide Nebs. Mucinex for sputum. (2) Hypomagnesemia Code(s): E83.42 - HYPOMAGNESEMIA Status: Resolved Comment: this is resolved , Mag 1.9 (3) CAD (coronary artery disease) Code(s): I25.10 - ATHSCL HEART DISEASE OF [place] CORONARY ARTERY W/O ANG PCTRS Status: Chronic Comment: s/p stent - currently off Effient, need to restart now after 3 days from knee surgery. (4) CKD (chronic kidney disease) stage 3, GFR 30-59 ml/min Code(s): N18.3 - CHRONIC KIDNEY DISEASE, STAGE 3 (MODERATE) Status: Chronic Comment: Stbale, Continue to Monitor Renal fucntions, Continue hydration. (5) GERD (gastroesophageal reflux disease) Code(s): K21.9 - GASTRO-ESOPHAGEAL REFLUX DISEASE WITHOUT ESOPHAGITIS Status: Chronic Comment: [place]. (6) HTN (hypertension) Code(s): I10 - ESSENTIAL (PRIMARY) HYPERTENSION Status: Chronic Comment: at goal, Continue with home MEds. - Plan cont current plan of care, plan discussed w/ family, PT/OT, respiratory therapy , incentive spirometry, DVT proph w/SCDs * . Review of Systems - Review of Systems Constitutional: negative: fever, chills, sweats, weakness, malaise, other Eyes: negative: Pain, Vision Change, Conjunctivae Inflammation, Eyelid Inflammation, Redness, Other ENT: negative: Ear Pain, Ear Discharge, Nose Pain, Nose Discharge, Nose Congestion, Mouth Pain, Mouth Swelling, Throat Pain, Throat Swelling, Other Respiratory: Cough, Shortness of Breath, SOB with Excertion, Wheezing. negative : Dry, Hemoptysis, Pleuritic Pain, Sputum Cardiovascular: negative: chest pain, palpitations, orthopnea, paroxysmal nocturnal dyspnea, edema, light headedness, other - Medications/Allergies Allergies/Adverse Reactions: Allergies Allergy/AdvReac Type Severity Reaction Status Date / Time naproxen [From Aleve] Allergy HIVES, Verified 10/31/17 12:44 BREATHING PROBLEMS pneumococcal vaccine Allergy Verified 11/12/17 12:49 Medications: Current Medications Acetaminophen (Tylenol) 650 mg PO Q4H PRN PRN Reason: GONZALEZ/ T > 101F; Mild Pain (1-3) Hydrocodone Bitart/Acetaminophen (Bertrand 10/325) 1 tab PO Q4H PRN PRN Reason: Moderate Pain (4-6) Last Admin: 11/14/17 13:51 Dose: 1 tab Hydrocodone Bitart/Acetaminophen (Bertrand 10/325) 2 tab PO Q4H PRN PRN Reason: Severe Pain (7-10) Last Admin: 11/14/17 07:49 Dose: 2 tab Hydrocodone Bitart/Acetaminophen (Bertrand 5/325) 1 tab PO Q4H PRN PRN Reason: Mild Pain (1-3) Hydrocodone Bitart/Acetaminophen (Bertrand 5/325) 2 tab PO Q4H PRN PRN Reason: For Moderate Pain 4-6 Albuterol Sulfate (Ventolin) 2.5 mg NEB Q6H PRN PRN Reason: SOB Last Admin: 11/12/17 14:38 Dose: 2.5 mg Albuterol/Ipratropium (Duoneb) 3 ml NEB [id number] [facility] Aspirin (Ecotrin) 81 mg PO BID [facility] Last Admin: 11/14/17 07:50 Dose: 81 mg Budesonide (Pulmicort Neb Solution) 0.5 mg INH BID-RT [facility] Diphenhydramine HCl (Benadryl) 25 mg PO Q6H PRN PRN Reason: Itching Fentanyl (Sublimaze) 50 mcg SLOW IVP Q30MIN PRN PRN Reason: Moderate Pain (4-6) Fentanyl (Sublimaze) 100 mcg SLOW IVP Q1H PRN PRN Reason: Severe Pain (7-10) Fentanyl (Sublimaze) 50 mcg IV Q1H PRN PRN Reason: BREAKTHROUGH PAIN Ferrous Gluconate (Fergon) 324 mg PO BID [facility] Last Admin: 11/14/17 07:52 Dose: 324 mg Guaifenesin (Mucinex) 1,200 mg PO Q12HR [facility] Hydrochlorothiazide (Hydrochlorothiazide) 12.5 mg PO DAILY [facility] Last Admin: 11/14/17 07:51 Dose: 12.5 mg Sodium Chloride (Normal Saline 0.9%) 1,000 mls @ 100 mls/hr IV .Q10H [facility] Last Admin: 11/14/17 01:47 Dose: Not Given Bupivacaine HCl 50 ml/ Sodium (Chloride) 100 mls @ 0 mls/hr NERVE BLCK INF [facility] PRN Reason: As Directed Last Admin: 11/14/17 01:45 Dose: 100 mls Iron/Minerals/Multivitamins (Theragran M) 1 tab PO DAILY [facility] Last Admin: 11/14/17 07:50 Dose: 1 tab Nitroglycerin (Nitrostat) 0.4 mg PO Q5MIN PRN PRN Reason: Chest Pain Ondansetron HCl (Zofran) 4 mg IVP Q6H PRN PRN Reason: Nausea/Vomiting Pantoprazole Sodium (Protonix) 40 mg PO DAILY [facility] Last Admin: 11/14/17 07:52 Dose: 40 mg Promethazine HCl (Phenergan) 12.5 mg IM Q4H PRN PRN Reason: Nausea/Vomiting Promethazine HCl (Phenergan) 12.5 mg IM Q4H PRN PRN Reason: Nausea Senna/Docusate Sodium (Senokot S) 2 tab PO BID [facility] Last Admin: 11/14/17 07:50 Dose: 2 tab Sodium Chloride (Flush - Normal Saline) 10 ml IVF PRN PRN PRN Reason: Saline Flush Tramadol HCl (Ultram) 50 mg PO Q6H PRN PRN Reason: Mild Pain (1-3) Last Admin: 11/12/17 23:24 Dose: 50 mg Tramadol HCl (Ultram) 100 mg PO Q6H PRN PRN Reason: Moderate Pain 4-6 Last Admin: 11/13/17 10:17 Dose: 100 mg Zolpidem Tartrate (Ambien) 5 mg PO HSPRN PRN PRN Reason: Insomnia
[2017-11-14] MEDS: Promethazine HCl 25 MG/ML VIAL IM PRN (14:47)
--- NOTE | 2017-11-14 15:46 | RAD ---
SINGLE VIEW OF THE CHEST: COMPARISON: 10/31/17. HISTORY: Shortness of breath that is worsening. FINDINGS: A single view of the chest shows a normal-size cardiomediastinal silhouette with atherosclerotic calc ifications in the aorta. There is no evidence of consolidation, mass, or pleural effusion. Degenera tive changes are seen in the spine. IMPRESSION: No evidence of acute cardiopulmonary disease. POS: [facility]
[2017-11-14] MEDS: Budesonide 0.5 MG/2 ML NEB INH SCH (19:01)
[2017-11-14] MEDS: guaiFENesin ER 600 MG TAB PO SCH (22:00)
[2017-11-15 04:16] LABS: Hemoglobin 10.9 g/dL (12.0-16.0); Mean Corpuscular HGB CONC 33.1 g/dL (32.0-36.0); Mean Corpuscular Hemoglobin 28.7 pg (27.0-31.0); Mean Corpuscular Volume 86.8 fl (81.0-99.0); Mean Platelet Volume 6.6 fL (7.4-10.4); Platelet Count 315 thou/uL (130-400); RBC Distribution Width 14.6 % (11.5-14.5)
[2017-11-15] MEDS: Promethazine HCl 25 MG/ML VIAL IM PRN ×3 (06:45→22:23)
[2017-11-15] MEDS: Sodium Chloride 0.9% 1,000 ML IV SCH ×2 (08:02→13:37)
[2017-11-15] MEDS: Budesonide 0.5 MG/2 ML NEB INH SCH ×2 (09:12→19:13)
[2017-11-15] MEDS: Hydrochlorothiazide 25 MG TAB PO SCH (09:16)
[2017-11-15] MEDS: Senokot S 8.6-50 MG TAB PO SCH ×2 (09:16→20:35)
[2017-11-15] MEDS: Ferrous Gluconate 324 MG TAB PO SCH ×2 (09:17→20:35)
[2017-11-15] MEDS: guaiFENesin ER 600 MG TAB PO SCH ×2 (09:17→20:35)
[2017-11-15] MEDS: Multivitamin W/ Minerals 1 TAB PO SCH (09:17)
[2017-11-15] MEDS: Aspirin 81 mg Enteric Coated Tablet PO SCH ×2 (09:18→20:35)
--- NOTE | 2017-11-15 09:55 | PDOC.EVN ---
Event Note - Event Note Event Note: NOTIFIED THAT PATIENTS HR INCREASED TO 130'S. EKG OBTAINED THAT REVEALS A-FIB/ FLUTTER WITH RATE 160. RATE IS VARIABLE BUT APPEARS TO BE AROUND 150'S. NO HISTORY OF AFIB/FLUTTER. HAS A HISTORY OF CAD. REPORTS FEELING TERRIBLE, MILD NAUSEA, HOT, BUT NOT CP OR OTHER SPECIFIC COMPLAINTS. BP 130'S SYSTOLIC. AWAKE AND ALERT. DIAPHORETIC, TACHYCARDIC. TRANSFERRING TO THE TELE UNIT FOR RATE CONTROL.
[2017-11-15 10:24] LABS: Troponin I 0.014 ng/mL (< 0.028)
--- NOTE | 2017-11-15 10:25 | PDOC.PN ---
- Subjective Encounter Start Date: 11/15/17 Encounter Start Time: 10:24 SEE EVENT NOTE. HAD ONSET OF AFIB/FLUTTER WITH RVR THIS MORNING WITH NAUSEA, DIAPHORESIS. TRANSFERRED TO THE TELE FLOOR. SBP 120'S. - Objective MAR Reviewed: Yes Vital Signs & Weight: Vital Signs (12 hours) Temp Pulse Resp BP Pulse Ox 11/15/17 08:00 98.3 F 85 16 96 11/15/17 03:53 98.3 F 85 16 144/89 H 92 L 11/14/17 23:59 98.5 F 107 H 16 132/68 90 L 11/14/17 23:55 90 L Weight Admit Weight 180 lb Weight 180 lb I&O: 11/14/17 11/15/17 11/16/17 06:59 06:59 06:59 Output Total 200 Balance -200 Result Diagrams: 11/15/17 04:01 11/12/17 17:42 Phys Exam - Physical Examination DIAPHROETIC Respiratory: no wheezing, no rales, no rhonchi, clear to auscultation bilateral TACHY WITH VARIABLE RATE. Gastrointestinal: soft, non-tender, no distention Musculoskeletal: no edema POST-OP DRESSING. Neurological: non-focal Dx/Plan (1) New onset a-fib Code(s): I48.91 - UNSPECIFIED ATRIAL FIBRILLATION Status: Acute Plan: TACHYCARDIA. BP LOOKS STABLE. WILL DOSE WITH IV CARDIZEM. IF SHE RESPONDS, WILL START GTT. CONSULT CARDIOLOGY. D/W DR. MUNOZ. TROPONIN PENDING. OXYGEN ORDERED. (2) CAD (coronary artery disease) Code(s): I25.10 - ATHSCL HEART DISEASE OF [place] CORONARY ARTERY W/O ANG PCTRS Status: Chronic Plan: HX OF APPARENT LAD DISEASE WITH THREE STENTS IN [place]. Comment: s/p stent - currently off Effient, need to restart now after 3 days from knee surgery. (3) CKD (chronic kidney disease) stage 3, GFR 30-59 ml/min Code(s): N18.3 - CHRONIC KIDNEY DISEASE, STAGE 3 (MODERATE) Status: Chronic Comment: Stbale, Continue to Monitor Renal fucntions, Continue hydration. (4) Postoperative stiffness of total knee replacement Code(s): T84.89XA - OTH COMP OF INTERNAL ORTHOPEDIC PROSTH DEV/GRFT, INIT; M25.669 - STIFFNESS OF UNSPECIFIED KNEE, NOT ELSEWHERE CLASSIFIED; Z96.659 - PRESENCE OF UNSPECIFIED ARTIFICIAL KNEE JOINT Status: Acute Plan: PATIENT WAS ESSENTIALLY READY FOR DC WITH REFERENCE TO THE KNEE SURGERY. - Plan * ABOVE. * 40 MIN CC TIME WITH UNSTABLE TACHYCARDIA. - Discharge Day Encounter end time: 10:31
--- NOTE | 2017-11-15 11:46 | PDOC.EVN ---
Event Note - Event Note Event Note: RESPONDED TO ONE DOSE OF IV CARDIZEM AND CONVERTED TO NSR RATE 60'S AND STABLE BP. FEELS MUCH BETTER.
--- NOTE | 2017-11-15 12:46 | EKG ---
Test Reason : Blood Pressure : / mmHG Vent. Rate : 160 BPM Atrial Rate : 366 BPM P-R Int : 000 ms QRS Dur : 074 ms QT Int : 282 ms P-R-T Axes : 000 064 076 degrees QTc Int : 460 ms Atrial flutter with variable A-V block with premature ventricular or aberrantly conducted complexes Nonspecific ST abnormality Abnormal ECG When compared with ECG of 12-NOV-2017 17:34, Atrial flutter has replaced Sinus rhythm Nonspecific T wave abnormality no longer evident in Inferior leads Confirmed by TERESA DUVALL ([id number]) on 11/15/2017 12:45:25 PM Referred By: TOVA NAGEL PA-C Confirmed By:TERESA DUVALL
[2017-11-15] MEDS: Ondansetron HCl/PF 4 MG/2 ML Vial IVP PRN ×2 (13:10→22:39)
[2017-11-15] MEDS: HYDROcodone/Acetaminophen 10/325 mg Tablet PO PRN ×2 (13:38→20:33)
--- NOTE | 2017-11-15 14:18 | PRG ---
DATE OF SERVICE: 11/15/2017 at 0900. SUBJECTIVE: Ms. Cochran is doing relatively well. She has been feeling bad this morning. Nursing staff reports elevated heart rate. Therefore, in evaluating her, she is noted to be tachycardic and her walking is diminished significantly due to poor tolerance over the last 24 hours. OBJECTIVE: VITAL SIGNS: Heart rate is 120-150, blood pressure is 144/89, respiratory rate 16, O2 saturation 96% on room air, temperature 98.3. GENERAL: She is alert and oriented to person, place, time, and situation. Grossly nonfocal, but she looks uncomfortable and little anxious. CHEST: Auscultation of the chest demonstrates an irregularly irregular heart rate and sounds. LABORATORY DATA AND IMAGING: Hemoglobin and hematocrit are 10.9 and 33.0. EKG demonstrates atrial fibrillation with a heart rate of 160. Incision is clean and closed without erythema and she is neurovascularly intact in the involved extremity. IMPRESSION: A 77-year-old female postoperative day #3 left total knee arthroplasty. 1. Postoperative hemorrhagic anemia. 2. Coronary atherosclerosis, chronic in nature. 3. New onset atrial fibrillation with tachycardia. PLAN: 1. I notified Dr. Mckenzie to come and evaluate the patient, also notified nursing staff to begin process of transfer to telemetry. 2. Stat EKG was ordered by me. 3. Disposition telemetry_. MTDD
[2017-11-15 14:58] LABS: Troponin I 0.024 ng/mL (< 0.028)
[2017-11-15] MEDS: HYDROcodone/Acetaminophen 5/325 mg Tablet PO PRN (17:05)
--- NOTE | 2017-11-15 18:58 | CON ---
DATE OF CONSULTATION: 11/15/2017 HISTORY OF PRESENT ILLNESS: Sammie Kee is a pleasant 77-year-old white female who lives in [place]. In March, she apparently had an episode of PND and was evaluated by a wardrobe assistant in [place]. Ultimately, she had 3 stents placed in the right coronary artery - Synergy 2.5 x 38, 3.0 x 38 and 3.0 x 12. These were placed on 03/05/2017. She was placed on Effient at that time. She now is admitted for left total knee replacement. She was told by her wardrobe assistant that she could stop the Effient. Surgery was performed on 2017, and then this morning she began to have very rapid heartbeat 3 days postop. She did notice that her heart was beating very rapidly and she was somewhat short of breath and weak with that. She states she has never had that particular type of symptoms in the past. She was transferred to telemetry, given intravenous Cardizem and ultimately converted to sinus rhythm. OPERATIONS: Colostomy for diverticular rupture, left total knee replacement, parathyroidectomy. PAST MEDICAL HISTORY: Remarkable for hypertension, although she is only on low dose hydrochlorothiazide. She states she has hypercholesterolemia, but she is not on any medications. No history of diabetes. MEDICATIONS AT HOME: Include Effient, which currently is no longer taking; aspirin 81 daily; Nexium 20 mg q.a.m.; hydrochlorothiazide 12.5 q.a.m.; and tramadol 50 p.r.n. ALLERGIES: ALEVE and PNEUMOCOCCAL VACCINE. SOCIAL HISTORY: She smoked less than a pack per day and stopped 6 years ago. She does not drink. FAMILY HISTORY: Both her mother and father had myocardial infarctions. PHYSICAL EXAMINATION: VITAL SIGNS: 133/75, pulse 82. HEENT: PERRL. NECK: Supple. CHEST: Reveals occasional late expiratory wheeze. CARDIOVASCULAR: S1 and S2 are normal without any S3, S4 or murmurs. Carotid upstrokes normal, without bruits. ABDOMEN: Obese. Normal bowel sounds. EXTREMITIES: Revealed no clubbing, cyanosis or edema. She does have lower extremity hyperpigmentation. NEUROLOGIC: Grossly intact. IMAGING DATA AND LABORATORY DATA:EKG reveals atrial fibrillation with fast ventricular response of 160 per minute. EKG on admission revealed sinus tachycardia with rate of 110 per minute and nonspecific T-wave changes. Hemoglobin 10.9, hematocrit 33.0, white count 11,000, platelets 315,000. Sodium 135, potassium 4.1, chloride 102, carbon dioxide 20, BUN 15, creatinine 1.07, glucose 186. Cardiac enzymes are unremarkable. BNP 166.7. TSH is normal. IMPRESSION: 1. Paroxysmal atrial fibrillation, converted with intravenous diltiazem. Apparently, she has never had this arrhythmia in the past. 2. Coronary artery disease, status post drug-eluting stent placement in the right coronary artery in 03/2017 in [place]. 3. Hypertension. 4. Hypercholesterolemia, on no medications. 5. Former smoker. 6. Positive family history. RECOMMENDATIONS: Echocardiogram will be performed to assess left ventricular function. She will be placed on low dose p.o. Cardizem hopefully for suppression of her arrhythmia. Fasting lipid profile will be obtained. [facility]
[2017-11-16 05:00] LABS: Hemoglobin 11.6 g/dL (12.0-16.0); Mean Corpuscular HGB CONC 33.3 g/dL (32.0-36.0); Mean Corpuscular Hemoglobin 28.7 pg (27.0-31.0); Mean Platelet Volume 6.8 fL (7.4-10.4); Platelet Count 391 thou/uL (130-400); RBC Distribution Width 14.8 % (11.5-14.5); Red Blood Cell (RBC) Count 4.03 mill/uL (4.20-5.40); White Blood Cell (WBC) Count 12.1 thou/uL (4.8-10.8)
[2017-11-16 05:16] LABS: Cardiac Risk 3.6 (Less than 4.5)
[2017-11-16] MEDS: Budesonide 0.5 MG/2 ML NEB INH SCH ×2 (07:03→18:00)
[2017-11-16] MEDS: traMADol HCl 50 MG TAB PO PRN ×3 (07:29→20:26)
[2017-11-16] MEDS: Acetaminophen 325 MG TAB PO PRN ×3 (07:30→20:27)
[2017-11-16] MEDS: Aspirin 81 mg Enteric Coated Tablet PO SCH ×2 (08:38→20:28)
[2017-11-16] MEDS: guaiFENesin ER 600 MG TAB PO SCH ×2 (08:38→20:28)
[2017-11-16] MEDS: Hydrochlorothiazide 25 MG TAB PO SCH (08:38)
[2017-11-16] MEDS: Senokot S 8.6-50 MG TAB PO SCH ×2 (08:40→20:27)
[2017-11-16] MEDS: Multivitamin W/ Minerals 1 TAB PO SCH (08:42)
[2017-11-16] MEDS: Ferrous Gluconate 324 MG TAB PO SCH ×2 (08:42→20:29)
--- NOTE | 2017-11-16 08:44 | PDOC.PN ---
- Subjective Encounter Start Date: 11/16/17 Encounter Start Time: 08:41 Had a difficult night. Developed nausea after pain meds. Had vomiting. Was given Phenergan. Had responded well to Ondansetron previously. Attempted that , but her IV was bad. New IV was difficult and patient declined further attempts. Feels better this morning. Colostomy is working well. Would like to try the Ultam and Tylenol for pain today. Has pain in the left calf. Has had redness, but a little better today. - Objective MAR Reviewed: Yes Vital Signs & Weight: Vital Signs (12 hours) Temp Pulse Resp BP Pulse Ox 11/16/17 07:03 120 H 16 11/16/17 04:00 98.9 F 104 H 12 123/59 L 96 11/16/17 02:00 110 H 16 98 11/16/17 00:38 98.3 F 104 H 14 134/66 97 Weight Admit Weight 180 lb Weight 180 lb I&O: 11/15/17 11/16/17 11/17/17 06:59 06:59 06:59 Intake Total 1737 Output Total 1940 Balance -203 Result Diagrams: 11/16/17 04:27 11/12/17 17:42 Additional Labs: Accuchecks 11/15/17 20:58 POC Glucose 140 H Phys Exam - Physical Examination Constitutional: NAD HEENT: oral pharynx no lesions Neck: no JVD, supple Respiratory: no wheezing, no rales, no rhonchi, clear to auscultation bilateral Cardiovascular: RRR, no significant murmur Borderline tachy. Gastrointestinal: soft, non-tender, no distention, positive bowel sounds LLE with some edema and TTP in the post. calf. No cords, Eun neg Neurological: non-focal Psychiatric: normal affect Skin: no rash, normal turgor Dx/Plan (1) New onset a-fib Code(s): I48.91 - UNSPECIFIED ATRIAL FIBRILLATION Status: Acute Plan: RESOLVED WITH ONE DOSE OF IV CARDIZEM. CARDIOLOGY CONSULTED. STARTED ORAL CARDIZEM. HAS NOT REALLY HAD ANY YET BECAUSE OF THE N/V. SOME TACHY OVERNIGHT. ONLY SINUS TACH. TROP NEGATIVE. (2) CAD (coronary artery disease) Code(s): I25.10 - ATHSCL HEART DISEASE OF [place] CORONARY ARTERY W/O ANG PCTRS Status: Chronic Plan: TOLERATED A PRETTY GOOD STRESS TEST WITH THE RVR YESTERDAY. SOME DIASTOLIC DYSFUNCTION ON ECHO WITH GOOD EF. NEED TO ESTABLISH WHAT HER ANTIPLATELET REGIMEN SHOULD BE NOW. DEFER TO CARDIOLOGY. (3) CKD (chronic kidney disease) stage 3, GFR 30-59 ml/min Code(s): N18.3 - CHRONIC KIDNEY DISEASE, STAGE 3 (MODERATE) Status: Chronic Plan: RECHECK CREATININE TODAY. MAY NEED SOME TORADOL. LAST CREAT WAS 1.0. (4) Postoperative stiffness of total knee replacement Code(s): T84.89XA - OT COMP OF INTERNAL ORTHOPEDIC PROSTH DEV/GRFT, INIT; M25.669 - STIFFNESS OF UNSPECIFIED KNEE, NOT ELSEWHERE CLASSIFIED; Z96.659 - PRESENCE OF UNSPECIFIED ARTIFICIAL KNEE JOINT Status: Acute Plan: A LITTLE OFF SCHEDULE FOR REHAB BECAUSE OF CARDIAC ISSUES. WILL TRY TO GET HER BACK ON TRACK AL[place]. TRYING TO CONTROL PAIN WITH ICE PACK, TYLENOL, ULTRAM. (5) Nausea & vomiting Code(s): R11.2 - NAUSEA WITH VOMITING, UNSPECIFIED Status: Acute Plan: TRY ORAL ZOFRAN TODAY. TRYING TO AVOID MORE POTENT OPIOIDS THESE SEEM TO BE CULPRIT. (6) Pain of left calf Code(s): M79.662 - PAIN IN LEFT LOWER LEG Status: Acute Plan: DOPPLER. - Plan * ABOVE.
[2017-11-16] MEDS: Enoxaparin Sodium 40 MG/0.4 ML SYRINGE SC SCH (09:47)
[2017-11-16 09:56] LABS: Anion Gap 17 mmol/L (10-20); BUN (Urea Nitrogen) 25 mg/dL (9.8-20.1); Calc. Creatinine Clearance 49 mL/min (70-130); Calcium 9.6 mg/dL (7.8-10.44); Carbon Dioxide 25 mmol/L (23-31); Chloride 94 mmol/L (98-107); Estimated GFR-MDRD 41; Glucose 118 mg/dL (83-110); Potassium 4.2 mmol/L (3.5-5.1); Sodium 132 mmol/L (136-145)
[2017-11-16] MEDS: Ondansetron ODT 4 MG TAB PO PRN ×2 (10:07→20:26)
--- NOTE | 2017-11-16 12:12 | ULT ---
LEFT LOWER EXTREMITY VENOUS DOPPLER: Date: 11/16/17 PROVIDED CLINICAL HISTORY: Left calf pain and edema. FINDINGS: Quintero scale and color Doppler sonography with spectral analysis was performed of the left common femor al, femoral, popliteal, posterior tibial, greater saphenous, and profunda femoral veins, demonstratin g a normal sonographic appearance to each. IMPRESSION: No sonographic evidence for left lower extremity deep venous thrombosis. POS: [facility]
[2017-11-16] MEDS: Atorvastatin Calcium 20 MG TAB PO SCH (20:28)
[2017-11-17] MEDS: Ondansetron ODT 4 MG TAB PO PRN ×4 (02:00→20:30)
[2017-11-17] MEDS: HYDROcodone/Acetaminophen 5/325 mg Tablet PO PRN ×2 (02:00→20:29)
[2017-11-17] MEDS: Budesonide 0.5 MG/2 ML NEB INH SCH ×2 (06:50→18:06)
[2017-11-17] MEDS: Multivitamin W/ Minerals 1 TAB PO SCH (08:04)
[2017-11-17] MEDS: Prasugrel 10 MG TAB PO SCH (08:04)
[2017-11-17] MEDS: Senokot S 8.6-50 MG TAB PO SCH ×2 (08:04→20:43)
[2017-11-17] MEDS: Aspirin 81 mg Enteric Coated Tablet PO SCH ×2 (08:04→20:30)
[2017-11-17] MEDS: traMADol HCl 50 MG TAB PO PRN ×3 (08:05→23:16)
[2017-11-17] MEDS: Hydrochlorothiazide 25 MG TAB PO SCH (08:06)
[2017-11-17] MEDS: Enoxaparin Sodium 40 MG/0.4 ML SYRINGE SC SCH (08:06)
[2017-11-17] MEDS: Ferrous Gluconate 324 MG TAB PO SCH ×2 (08:54→20:42)
[2017-11-17] MEDS: guaiFENesin ER 600 MG TAB PO SCH ×2 (09:08→20:28)
[2017-11-17] MEDS: Acetaminophen 325 MG TAB PO PRN ×2 (10:51→17:43)
[2017-11-17 11:21] LABS: Anion Gap 16 mmol/L (10-20); BUN (Urea Nitrogen) 24 mg/dL (9.8-20.1); Calc. Creatinine Clearance 67 mL/min (70-130); Calcium 9.5 mg/dL (7.8-10.44); Carbon Dioxide 27 mmol/L (23-31); Chloride 88 mmol/L (98-107); Estimated GFR-MDRD 55; Glucose 109 mg/dL (83-110); Potassium 3.8 mmol/L (3.5-5.1); Sodium 127 mmol/L (136-145)
--- NOTE | 2017-11-17 16:10 | PDOC.PN ---
- Subjective Encounter Start Date: 11/17/17 Encounter Start Time: 13:00 Patient is seen today, alert and oriented. C/o occasional cramps in her arms, likely from Hyperventilation Resp Alkalosis. Pt has panic attacks, advised to breath slowly in rebreather brown bag. - Objective MAR Reviewed: Yes Vital Signs & Weight: Vital Signs (12 hours) Temp Pulse Pulse Pulse Resp BP BP 11/17/17 14:20 90 14 11/17/17 12:00 97.8 F 103 H 20 11/17/17 10:33 105 H 16 11/17/17 10:04 102 H 104 H 132/81 134/62 11/17/17 08:00 98.8 F 103 H 20 11/17/17 06:50 100 16 BP BP Pulse Ox 11/17/17 14:20 11/17/17 12:00 172/79 H 11/17/17 10:33 11/17/17 10:04 11/17/17 08:00 120/87 96 11/17/17 06:50 Weight Admit Weight 180 lb Weight 187 lb 9.6 oz I&O: 11/16/17 11/17/17 11/18/17 06:59 06:59 06:59 Intake Total 1737 1540 Output Total 1940 Balance -203 1540 Result Diagrams: 11/16/17 04:27 11/17/17 10:50 Radiology Reviewed by me: Yes Phys Exam - Physical Examination HEENT: PERRLA, moist MMs Neck: no nodes, no JVD Respiratory: no wheezing, no rales Cardiovascular: RRR, no significant murmur Gastrointestinal: non-tender Musculoskeletal: no edema, pulses present Neurological: non-focal, normal sensation Lymphatic: no nodes Dx/Plan (1) Asthma exacerbation Code(s): J45.901 - UNSPECIFIED ASTHMA WITH (ACUTE) EXACERBATION Status: Acute Comment: Pt deneis having asthma, says she has bronchitis, she is on neb treatments. and Stbale. Will do Duonebs, Scheduled, Budesonide Nebs. Mucinex for sputum. (2) Hypomagnesemia Code(s): E83.42 - HYPOMAGNESEMIA Status: Resolved Comment: this is resolved , Mag 1.9 (3) CAD (coronary artery disease) Code(s): I25.10 - ATHSCL HEART DISEASE OF [place] CORONARY ARTERY W/O ANG PCTRS Status: Chronic Comment: s/p stent - currently off Effient, need to restart now after 3 days from knee surgery. (4) CKD (chronic kidney disease) stage 3, GFR 30-59 ml/min Code(s): N18.3 - CHRONIC KIDNEY DISEASE, STAGE 3 (MODERATE) Status: Chronic Comment: Stbale, Continue to Monitor Renal fucntions, Continue hydration. (5) GERD (gastroesophageal reflux disease) Code(s): K21.9 - GASTRO-ESOPHAGEAL REFLUX DISEASE WITHOUT ESOPHAGITIS Status: Chronic Comment: Stbael. (6) HTN (hypertension) Code(s): I10 - ESSENTIAL (PRIMARY) HYPERTENSION Status: Chronic Comment: at goal, Continue with home MEds. (7) New onset a-fib Code(s): I48.91 - UNSPECIFIED ATRIAL FIBRILLATION Status: Acute Comment: rate controlled, Remains irrigular. Will continue with po Cardizem. - Plan cont current plan of care, plan discussed w/ family, PT/OT, director of social services, respiratory therapy, incentive spirometry, DVT proph w/lovenox * . Review of Systems - Review of Systems Eyes: negative: Pain, Vision Change, Conjunctivae Inflammation, Eyelid Inflammation, Redness, Other ENT: negative: Ear Pain, Ear Discharge, Nose Pain, Nose Discharge, Nose Congestion, Mouth Pain, Mouth Swelling, Throat Pain, Throat Swelling, Other Respiratory: negative: Cough, Dry, Shortness of Breath, Hemoptysis, SOB with Excertion, Pleuritic Pain, Sputum, Wheezing Cardiovascular: negative: chest pain, palpitations, orthopnea, paroxysmal nocturnal dyspnea, edema, light headedness, other Gastrointestinal: negative: Nausea, Vomiting, Abdominal Pain, Diarrhea, Constipation, Melena, Hematochezia, Other Musculoskeletal: negative: Neck Pain, Shoulder Pain, Arm Pain, Back Pain, Hand Pain, Leg Pain, Foot Pain, Other Skin: negative: Rash, Lesions, Dominick, Bruising, Other - Medications/Allergies Allergies/Adverse Reactions: Allergies Allergy/AdvReac Type Severity Reaction Status Date / Time naproxen [From Aleve] Allergy HIVES, Verified 10/31/17 12:44 BREATHING PROBLEMS pneumococcal vaccine Allergy Verified 11/12/17 12:49 Medications: Current Medications Acetaminophen (Tylenol) 650 mg PO Q4H PRN PRN Reason: GONZALEZ/ T > 101F; Mild Pain (1-3) Last Admin: 11/17/17 10:51 Dose: 650 mg Hydrocodone Bitart/Acetaminophen ([place] 5/325) 1 tab PO Q4H PRN PRN Reason: Mild Pain (1-3) Last Admin: 11/17/17 02:00 Dose: 1 tab Hydrocodone Bitart/Acetaminophen ([place] 5/325) 2 tab PO Q4H PRN PRN Reason: For Moderate Pain 4-6 Albuterol Sulfate (Ventolin) 2.5 mg NEB Q6H PRN PRN Reason: SOB Last Admin: 11/12/17 14:38 Dose: 2.5 mg Albuterol/Ipratropium (Duoneb) 3 ml NEB [id number] [facility] Last Admin: 11/17/17 14:20 Dose: 3 ml Aspirin (Ecotrin) 81 mg PO BID [facility] Last Admin: 11/17/17 08:04 Dose: 81 mg Atorvastatin Calcium (Lipitor) 20 mg PO HS [facility] Last Admin: 11/16/17 20:28 Dose: 20 mg Budesonide (Pulmicort Neb Solution) 0.5 mg INH BID-RT [facility] Last Admin: 11/17/17 06:50 Dose: 0.5 mg Diltiazem HCl (Cardizem) 30 mg PO ACHS [facility] Last Admin: 11/17/17 12:17 Dose: 30 mg Diphenhydramine HCl (Benadryl) 25 mg PO Q6H PRN PRN Reason: Itching Enoxaparin Sodium (Lovenox) 40 mg SC 0900 [facility] Last Admin: 11/17/17 08:06 Dose: 40 mg Ferrous Gluconate (Fergon) 324 mg PO BID [facility] Last Admin: 11/17/17 08:54 Dose: Not Given Guaifenesin (Mucinex) 1,200 mg PO Q12HR [facility] Last Admin: 11/17/17 09:08 Dose: 1,200 mg Iron/Minerals/Multivitamins (Theragran M) 1 tab PO DAILY [facility] Last Admin: 11/17/17 08:04 Dose: Not Given Nitroglycerin (Nitrostat) 0.4 mg PO Q5MIN PRN PRN Reason: Chest Pain Ondansetron HCl (Zofran) 4 mg IVP Q6H PRN PRN Reason: Nausea/Vomiting Last Admin: 11/15/17 13:10 Dose: 4 mg Ondansetron HCl (Zofran Odt) 4 mg PO Q6H PRN PRN Reason: Nausea/Vomiting Last Admin: 11/17/17 14:04 Dose: 4 mg Pantoprazole Sodium (Protonix) 40 mg PO DAILY [facility] Last Admin: 11/17/17 08:05 Dose: 40 mg Prasugrel (Effient) 10 mg PO DAILY [facility] Last Admin: 11/17/17 08:04 Dose: 10 mg Promethazine HCl (Phenergan) 12.5 mg IM Q4H PRN PRN Reason: Nausea Senna/Docusate Sodium (Senokot S) 2 tab PO BID [facility] Last Admin: 11/17/17 08:04 Dose: 2 tab Sodium Chloride (Flush - Normal Saline) 10 ml IVF PRN PRN PRN Reason: Saline Flush Tramadol HCl (Ultram) 50 mg PO Q6H PRN PRN Reason: Mild Pain (1-3) Last Admin: 11/17/17 08:05 Dose: 50 mg Tramadol HCl (Ultram) 100 mg PO Q6H PRN PRN Reason: Moderate Pain 4-6 Last Admin: 11/17/17 14:03 Dose: 100 mg Zolpidem Tartrate (Ambien) 5 mg PO HSPRN PRN PRN Reason: Insomnia
[2017-11-17] MEDS: Atorvastatin Calcium 20 MG TAB PO SCH (20:42)
[2017-11-18] MEDS: HYDROcodone/Acetaminophen 5/325 mg Tablet PO PRN ×3 (03:22→14:55)
[2017-11-18] MEDS: Ondansetron ODT 4 MG TAB PO PRN ×3 (03:22→14:59)
[2017-11-18] MEDS: Budesonide 0.5 MG/2 ML NEB INH SCH (07:28)
[2017-11-18] MEDS: Aspirin 81 mg Enteric Coated Tablet PO SCH (08:27)
[2017-11-18] MEDS: guaiFENesin ER 600 MG TAB PO SCH (08:27)
[2017-11-18] MEDS: Senokot S 8.6-50 MG TAB PO SCH (08:28)
[2017-11-18] MEDS: Enoxaparin Sodium 40 MG/0.4 ML SYRINGE SC SCH (08:28)
[2017-11-18] MEDS: Prasugrel 10 MG TAB PO SCH (08:28)
[2017-11-18] MEDS: Multivitamin W/ Minerals 1 TAB PO SCH (08:29)
[2017-11-18] MEDS: Ferrous Gluconate 324 MG TAB PO SCH (08:30)
--- NOTE | 2017-11-18 11:37 | PDOC.PN ---
- Subjective Encounter Start Date: 11/18/17 Encounter Start Time: 07:50 -: old records requested/rev Patient seen and examined for PAF. No new complaints. No overnight events - Objective MAR Reviewed: Yes Vital Signs & Weight: Vital Signs (12 hours) Temp Pulse Resp BP BP Pulse Ox 11/18/17 10:33 96 11/18/17 10:29 85 20 96 11/18/17 08:30 98.1 F 94 18 94 L 11/18/17 07:30 94 18 94 L 11/18/17 07:28 94 18 94 L 11/18/17 07:15 98.1 F 94 18 139/67 94 L 11/18/17 06:09 97.8 F 96 18 133/63 95 11/18/17 01:00 91 18 95 Weight Admit Weight 180 lb Weight 193 lb 6.4 oz I&O: 11/17/17 11/18/17 11/19/17 06:59 06:59 06:59 Intake Total 1540 1140 Output Total 100 Balance 1540 1040 Result Diagrams: 11/16/17 04:27 11/17/17 10:50 EKG Reviewed by me: Yes (nsr) Phys Exam - Physical Examination Constitutional: NAD HEENT: PERRLA, moist MMs, sclera anicteric Neck: no JVD, supple Respiratory: no wheezing, no rales, no rhonchi Cardiovascular: RRR, no rub SM+ Gastrointestinal: soft, non-tender, no distention, positive bowel sounds Musculoskeletal: no edema, pulses present Neurological: non-focal, normal sensation, moves all 4 limbs Lymphatic: no nodes Psychiatric: normal affect, A&O x 3 Skin: no rash, normal turgor Dx/Plan (1) Status post total left knee replacement Code(s): Z96.652 - PRESENCE OF LEFT ARTIFICIAL KNEE JOINT Status: Acute (2) Anemia, normocytic normochromic Code(s): D64.9 - ANEMIA, UNSPECIFIED Status: Chronic (3) New onset a-fib Code(s): I48.91 - UNSPECIFIED ATRIAL FIBRILLATION Status: Acute Comment: now NSR (4) Asthma Code(s): J45.909 - UNSPECIFIED ASTHMA, UNCOMPLICATED Status: Chronic (5) Obesity (BMI 30-39.9) Code(s): E66.9 - OBESITY, UNSPECIFIED Status: Acute (6) CAD (coronary artery disease) Code(s): I25.10 - ATHSCL HEART DISEASE OF [place] CORONARY ARTERY W/O ANG PCTRS Status: Chronic Comment: (7) GERD (gastroesophageal reflux disease) Code(s): K21.9 - GASTRO-ESOPHAGEAL REFLUX DISEASE WITHOUT ESOPHAGITIS Status: Chronic Comment: [place]. (8) HTN (hypertension) Code(s): I10 - ESSENTIAL (PRIMARY) HYPERTENSION Status: Chronic Comment: (9) Hypomagnesemia Code(s): E83.42 - HYPOMAGNESEMIA Status: Resolved Comment: - Plan cont current plan of care, PT/OT, social staff worker * pt prefers to go to rehab/snu * medication reviewed as below * symptomatic treatment * overall stable with current treatment * paper work for discharge done * await placement. Review of Systems - Review of Systems Eyes: negative: Pain, Vision Change, Conjunctivae Inflammation, Eyelid Inflammation, Redness, Other ENT: negative: Ear Pain, Ear Discharge, Nose Pain, Nose Discharge, Nose Congestion, Mouth Pain, Mouth Swelling, Throat Pain, Throat Swelling, Other Respiratory: negative: Cough, Dry, Shortness of Breath, Hemoptysis, SOB with Excertion, Pleuritic Pain, Sputum, Wheezing Cardiovascular: negative: chest pain, palpitations, orthopnea, paroxysmal nocturnal dyspnea, edema, light headedness, other Gastrointestinal: negative: Nausea, Vomiting, Abdominal Pain, Diarrhea, Constipation, Melena, Hematochezia, Other Genitourinary: negative: Dysuria, Frequency, Incontinence, Hematuria, Retention , Other Musculoskeletal: negative: Neck Pain, Shoulder Pain, Arm Pain, Back Pain, Hand Pain, Leg Pain, Foot Pain, Other Skin: negative: Rash, Lesions, Dominick, Bruising, Other - Medications/Allergies Allergies/Adverse Reactions: Allergies Allergy/AdvReac Type Severity Reaction Status Date / Time naproxen [From Aleve] Allergy HIVES, Verified 10/31/17 12:44 BREATHING PROBLEMS pneumococcal vaccine Allergy Verified 11/12/17 12:49 Medications: Current Medications Acetaminophen (Tylenol) 650 mg PO Q4H PRN PRN Reason: GONZALEZ/ T > 101F; Mild Pain (1-3) Last Admin: 11/17/17 17:43 Dose: 650 mg Hydrocodone Bitart/Acetaminophen ([place] 5/325) 1 tab PO Q4H PRN PRN Reason: Mild Pain (1-3) Last Admin: 11/17/17 02:00 Dose: 1 tab Hydrocodone Bitart/Acetaminophen ([place] 5/325) 2 tab PO Q4H PRN PRN Reason: For Moderate Pain 4-6 Last Admin: 11/18/17 09:41 Dose: 2 tab Albuterol Sulfate (Ventolin) 2.5 mg NEB Q6H PRN PRN Reason: SOB Last Admin: 11/12/17 14:38 Dose: 2.5 mg Albuterol/Ipratropium (Duoneb) 3 ml NEB [id number] [facility] Last Admin: 11/18/17 10:29 Dose: 3 ml Aspirin (Ecotrin) 81 mg PO BID [facility] Last Admin: 11/18/17 08:27 Dose: 81 mg Atorvastatin Calcium (Lipitor) 20 mg PO HS [facility] Last Admin: 11/17/17 20:42 Dose: Not Given Budesonide (Pulmicort Neb Solution) 0.5 mg INH BID-RT [facility] Last Admin: 11/18/17 07:28 Dose: 0.5 mg Diltiazem HCl (Cardizem) 30 mg PO ACHS [facility] Last Admin: 11/18/17 08:27 Dose: 30 mg Diphenhydramine HCl (Benadryl) 25 mg PO Q6H PRN PRN Reason: Itching Enoxaparin Sodium (Lovenox) 40 mg SC 0900 [facility] Last Admin: 11/18/17 08:28 Dose: 40 mg Ferrous Gluconate (Fergon) 324 mg PO BID [facility] Last Admin: 11/18/17 08:30 Dose: Not Given Guaifenesin (Mucinex) 1,200 mg PO Q12HR [facility] Last Admin: 11/18/17 08:27 Dose: 1,200 mg Iron/Minerals/Multivitamins (Theragran M) 1 tab PO DAILY [facility] Last Admin: 11/18/17 08:29 Dose: Not Given Nitroglycerin (Nitrostat) 0.4 mg PO Q5MIN PRN PRN Reason: Chest Pain Ondansetron HCl (Zofran) 4 mg IVP Q6H PRN PRN Reason: Nausea/Vomiting Last Admin: 11/15/17 13:10 Dose: 4 mg Ondansetron HCl (Zofran Odt) 4 mg PO Q6H PRN PRN Reason: Nausea/Vomiting Last Admin: 11/18/17 09:42 Dose: 4 mg Pantoprazole Sodium (Protonix) 40 mg PO DAILY [facility] Last Admin: 11/18/17 08:27 Dose: 40 mg Prasugrel (Effient) 10 mg PO DAILY [facility] Last Admin: 11/18/17 08:28 Dose: 10 mg Promethazine HCl (Phenergan) 12.5 mg IM Q4H PRN PRN Reason: Nausea Senna/Docusate Sodium (Senokot S) 2 tab PO BID [facility] Last Admin: 11/18/17 08:28 Dose: Not Given Sodium Chloride (Flush - Normal Saline) 10 ml IVF PRN PRN PRN Reason: Saline Flush Tramadol HCl (Ultram) 50 mg PO Q6H PRN PRN Reason: Mild Pain (1-3) Last Admin: 11/17/17 08:05 Dose: 50 mg Tramadol HCl (Ultram) 100 mg PO Q6H PRN PRN Reason: Moderate Pain 4-6 Last Admin: 11/17/17 23:16 Dose: 100 mg Zolpidem Tartrate (Ambien) 5 mg PO HSPRN PRN PRN Reason: Insomnia
[2017-11-18 12:03] VITALS: BP 125/59; TEMP 98.6
--- NOTE | 2017-11-18 14:03 | DIS ---
DATE OF ADMISSION: 11/12/2017 DATE OF DISCHARGE: 11/18/2017 PRIMARY CARE PHYSICIAN: Dr. Alhaji Berman. PRIMARY ATTENDING: Hamzah Good M.D. DISCHARGE DISPOSITION: long term home. PRIMARY DISCHARGE DIAGNOSES: 1. Status post left total knee replacement. 2. New onset atrial fibrillation. 3. Hypomagnesemia, corrected. 4. Acute kidney injury, improved. 5. Hyponatremia. SECONDARY DISCHARGE DIAGNOSES: Hypertension, gastroesophageal reflux disease, coronary artery diseas e, asthma, normocytic normochromic anemia, obesity with body mass index 36. PRIMARY PROCEDURE/OPERATION: Left total knee replacement. RADIOLOGICAL INVESTIGATION: Chest x-ray showed no acute process. Echocardiography showed normal EF, diastolic dysfunction. Ultrasound of lower extremity, negative for any DVT. SIGNIFICANT LABORATORIES: WBC 12.1, hemoglobin 11.6, platelets 391,000. Sodium 127, potassium 3.8, BUN 24, creatinine 0.98, calcium 9.5. Cardiac enzymes negative. LDL 87. DISCHARGE MEDICATIONS: Aspirin 81 mg p.o. b.i.d., Lipitor 20 mg p.o. at bedtime, Nexium 20 mg p.o. d aily, ferrous gluconate 324 mg p.o. b.i.d., hydrochlorothiazide 12.5 mg p.o. daily, Effient 10 mg p.o . daily, Ventolin inhaler 2 puffs q.6 hourly p.r.n. CONTRAINDICATIONS: None. CODE STATUS: FULL CODE. INPATIENT CONSULTANTS: Dr. Betancur was consulted while in hospital. Dr. Hamzah Good was primary w hile in hospital. [employer] Team was consulted for medical comanagement. TEST RESULTS PENDING ON DISCHARGE: None. ALLERGIES: NAPROXEN and PNEUMOCOCCAL VACCINE. DISCHARGE PLAN: Post hospital, the patient is planned to discharge to care home home. Subsequ ently, the patient will follow up with Dr. Hamzah Good on 12/02/2017 at 10:45 a.m. HOSPITAL COURSE: A 77-year-old female who was admitted by Dr. Good on 11/12/2017 for left total kn ee replacement, which was done on 11/12/2017. After surgery at [facility], [place] Team was cons ulted for medical comanagement. The patient had tachycardia and that is why EKG was obtained, which was consistent with atrial fibril lation with rapid ventricular response. The patient was transferred to telemetry floor. We did seri al cardiac enzyme and ruled out acute coronary syndrome. Cardiology was consulted. Echocardiography was obtained. Cardiology started on Cardizem CD 30 mg p.o. a.c. and at bedtime and with that, the p atient's rate was under control. The patient was converted to normal sinus rhythm. The patient was wheezing while in hospital and that is why we prescribed Dulera inhalation. Upon discharge, the jessica ent was doing very well. Subsequently, she did not have any atrial fibrillation. The patient had mi ld acute kidney injury that was also improved. Her sodium was fluctuating while in hospital. Cardio logy recommended to continue aspirin and Effient therapy. The patient is seen and examined at bedside today. Please see my progress note from today for furthe r detail.
== END 2017-11-18 15:00 | DRG 470 ==
LOC: SDC 06:13 → SJJU 07:06 → 2NO 11-15 10:23
PROVIDERS: ADMIT Orthopaedic Surgery; ATTEND Orthopaedic Surgery
PROC: 0SRD0J9 Replacement of Left Knee Joint with Synthetic Substitute, Cemented, Open Approach (ICD-10-PCS; principal; 2017-11-12)
DX: M17.12 Unilateral primary osteoarthritis, left knee (principal); N17.9 Acute kidney failure, unspecified; E87.1 Hypo-osmolality and hyponatremia; J45.901 Unspecified asthma with (acute) exacerbation; E87.3 Alkalosis; I25.10 Atherosclerotic heart disease of native coronary artery without angina pectoris; E83.42 Hypomagnesemia; I48.0 Paroxysmal atrial fibrillation; K21.9 Gastro-esophageal reflux disease without esophagitis; E66.9 Obesity, unspecified; E78.00 Pure hypercholesterolemia, unspecified; D64.9 Anemia, unspecified; I12.9 Hypertensive chronic kidney disease with stage 1 through stage 4 chronic kidney disease, or unspecified chronic kidney disease; N18.3 Chronic kidney disease, stage 3 (moderate); R11.2 Nausea with vomiting, unspecified; M79.662 Pain in left lower leg; Z68.36 Body mass index [BMI] 36.0-36.9, adult; Z79.82 Long term (current) use of aspirin; Z79.899 Other long term (current) drug therapy; Z95.5 Presence of coronary angioplasty implant and graft; Z87.891 Personal history of nicotine dependence; Z96.651 Presence of right artificial knee joint
CPT/HCPCS: 36415; 36416; 71045; 80048; 80061; 83735; 83880; 84100; 84443; 84484; 85027; 93005; 93010; 93306; 94640; 94760; C1713; C1776; G8978-GP-CK; G8979-GP-CI; G8979-GP-CJ; J1100; J1650; J2250; J2405; J2550; J2795; J3010; J3370; J3475; J3490; J7050; J7611; J7620; J7626; Q0162; S0020